=== PATIENT | female | born 1975 | race Caucasian/White ===

== ENCOUNTER 2016-05-11 07:44 | Emergency (ER) | payer BC | END 2016-05-11 10:09 | disposition home or self-care (01) | LOC: ER 07:44 | DX: R09.1 Pleurisy (principal); E03.9 Hypothyroidism, unspecified; F17.210 Nicotine dependence, cigarettes, uncomplicated; Z79.899 Other long term (current) drug therapy | CPT/HCPCS: 96374; J1885 ==